=== PATIENT | male | born 1965 | race Caucasian/White ===

== ENCOUNTER → 2020-01-25 12:04 | Outpatient (BNVA) | payer BC, SELFPAY | PROVIDERS: Family Provider Family Medicine; Visit Provider Specialist | DX: M19.042 Primary osteoarthritis, left hand (principal) | CPT/HCPCS: 73140 ==

== ENCOUNTER 2020-01-25 15:26 | Outpatient (CLI) | payer BC, SELFPAY | END 2020-01-25 15:27 | disposition home or self-care (01) | LOC: SPT 15:27 | PROVIDERS: Family Provider Family Medicine; Visit Provider Specialist | DX: Z86.79 Personal history of other diseases of the circulatory system (principal); M18.12 Unilateral primary osteoarthritis of first carpometacarpal joint, left hand | CPT/HCPCS: L3924 ==

== ENCOUNTER 2020-12-27 12:44 | Outpatient (CLI) | payer BC, SELFPAY ==
--- NOTE | 2020-12-27 13:07 | MR_ITS ---
WS: [id number] MRI RIGHT SHOULDER HISTORY: SHOULDER PAIN, BILATERAL COMPARISON: 07/14/2018 TECHNIQUE: Multiplanar sequences of the shoulder joint are submitted. Moderate to severe AC joint hypertrophy. There is increased T2 signal surrounding the AC joint and th rough the AC ligament. Thickening of the capsule anterior and posterior. Hypertrophic bone formation and soft tissue encroaching upon the supraspinatus muscle and tendon. No os acromion. Biceps tendon i s in normal position. Progressive fraying along the surfaces of the supraspinatus tendon. Increased signal within the supra spinatus. There is impingement upon the supraspinatus tendon by the AC joint. No tear is identified. There is a small insertion site tear measuring about 5 mm involving the infraspinatus tendon. Mild te ndinopathy of the subscapularis tendon. No retraction of the tendons. Small amount of fluid in the eddy bacromial and subdeltoid bursa. Mild persistent fraying of the labrum. Similar to the prior study. No definite tears are identified. MR/MR shoulder RT wo con* [id number] IMPRESSION: 1. Moderate to severe AC joint hypertrophy encroaching upon the supraspinatus muscle and tendon. Progressed since 07/14/2020. 2. Small insertion site tear of the infraspinatus muscle. 3. Moderate tendinopathy in the distal supraspinatus tendon with adjacent infl ammatory changes and fluid from the AC joint impingement. Progressive surface f raying along the supraspinatus tendon.
--- NOTE | 2020-12-27 13:07 | MR_ITS ---
WS: [id number] MRI LEFT SHOULDER HISTORY: SHOULDER PAIN, BILATERAL COMPARISON: None available. TECHNIQUE: Multiplanar sequences of the shoulder joint are submitted. Study is compromised by patient movement. There is significant motion artifact. Moderate to severe AC joint hypertrophy. There is bone and soft tissue encroachment upon the supraspi natus tendon and muscle with deformity. Increased fluid in the subacromial and subdeltoid bursa. Biceps tendon is in normal position. No os acromion. Increased fluid and T2 signal along the bursal and articular surfaces of the supraspinatus. Fraying a long the surfaces but no definite tear is identified. Insertion site tears of the infraspinatus muscl e. There are several small insertion site tears identified without retraction. Subscapularis tendon i s intact. Cannot comment on the labrum due to the amount of motion degrading this image quality. MR/MR shoulder LT wo con* [id number] IMPRESSION: 1. Quality of examination is significantly limited by motion. 2. Moderate to severe AC joint hypertrophy with subacromial and subdeltoid bur karine fluid and encroachment and deformity of the supraspinatus tendon and muscle . 3. No supraspinatus tear identified although there is tendinopathy and surface fraying. 4. Several small insertion site tears of the infraspinatus tendon with no retr action.
== END 2020-12-27 12:45 | disposition home or self-care (01) ==
LOC: RADWPI 12:47
PROVIDERS: PCP Family Medicine; Visit Provider Family Medicine
DX: M25.511 Pain in right shoulder (principal); M25.512 Pain in left shoulder; S46.912A Strain of unspecified muscle, fascia and tendon at shoulder and upper arm level, left arm, initial encounter; S46.911A Strain of unspecified muscle, fascia and tendon at shoulder and upper arm level, right arm, initial encounter; X58.XXXA Exposure to other specified factors, initial encounter
CPT/HCPCS: 73221

== ENCOUNTER → 2022-03-12 07:58 | Outpatient (BNVA) | payer BC, SELFPAY | PROVIDERS: PCP Family Medicine; Visit Provider Specialist | DX: R29.90 Unspecified symptoms and signs involving the nervous system (principal); M19.049 Primary osteoarthritis, unspecified hand; R29.898 Other symptoms and signs involving the musculoskeletal system; M19.032 Primary osteoarthritis, left wrist; I16.0 Hypertensive urgency | CPT/HCPCS: 36415; 73100; 73120; 85651; 86140; 86160; 86162; 86200; 86235; 86255; 86376; 86431 ==

== ENCOUNTER → 2022-04-24 09:59 | Outpatient (BNVA) | payer BC, SELFPAY | PROVIDERS: PCP Family Medicine; Visit Provider Specialist | DX: G56.13 Other lesions of median nerve, bilateral upper limbs (principal); M19.049 Primary osteoarthritis, unspecified hand; R29.898 Other symptoms and signs involving the musculoskeletal system; M19.032 Primary osteoarthritis, left wrist; M67.911 Unspecified disorder of synovium and tendon, right shoulder; R29.90 Unspecified symptoms and signs involving the nervous system | CPT/HCPCS: 85651; 86160; 86162; 86235; 86255; 86376; 86431 ==

== ENCOUNTER 2022-06-25 06:38 | Outpatient (CLI) | payer BC, SELFPAY ==
--- NOTE | 2022-06-25 08:45 | MR_ITS ---
WS: [id number] MRI LEFT WRIST with and without CONTRAST. COMPARISON: Radiograph 03/12/2022 Multiplanar, multisequence imaging is performed with and without contrast. Sagittal and axial T1 fat sat sequences post-MultiHance 20 cc IV. Moderate size fluid collection with peripheral enhancement centered around the distal ulna. The compl ex fluid collection with peripheral enhancement extends into the distal radial ulnar joint. There is moderate narrowing of the distal radial ulnar joint with an osteophyte encroaching upon the distal ra dius. Small erosion within the distal ulna. Abnormal signal in the TFCC. Consistent with a complete t ear. There are no normal fibers identified. Fluid extends through the region of the TFCC and surround s the ulnar styloid. Mild narrowing of the distal radiocarpal joint space. Narrowing of the carpal rows. Normal position o f the lunate and capitate. Scapholunate ligament is intact. No fractures are identified. Mild edema and enhancement surrounding the proximal carpal rows is an ex tension from the inflammatory process at the radial ulnar joint. MR/MR wrist LT wo/w con [id number] IMPRESSION: 1. Distal radial ulnar joint effusion with extension to surround the distal ul na. Peripheral enhancement within the effusion suggesting synovitis or acute in flammatory reaction. Favor these changes are probably due to degenerative infla mmatory arthritis with associated TFCC tear. Less likely septic arthritis. 2. Abnormal TFCC. Greater fibrocartilage is torn and not identified as a separ ate structure. The complex fluid collection edema extends to the region of the TFCC. 3. Mild narrowing of the distal radiocarpal joint and the distal radial ulnar joint.
[2022-06-25] MEDS: gadobenate dimeglumine 20 mL vial IV (08:52)
== END 2022-06-25 06:39 | disposition home or self-care (01) ==
LOC: RAD 06:39
PROVIDERS: PCP Family Medicine; Visit Provider Specialist
DX: M19.032 Primary osteoarthritis, left wrist (principal); M25.432 Effusion, left wrist
CPT/HCPCS: 73223

== ENCOUNTER → 2022-07-04 09:54 | Outpatient (BNVA) | payer BC, SELFPAY | PROVIDERS: PCP Family Medicine; Referring Provider Specialist; Visit Provider Internal Medicine Rheumatology | DX: M19.90 Unspecified osteoarthritis, unspecified site (principal); Z79.899 Other long term (current) drug therapy; Z11.59 Encounter for screening for other viral diseases; M19.032 Primary osteoarthritis, left wrist; M06.041 Rheumatoid arthritis without rheumatoid factor, right hand; M06.042 Rheumatoid arthritis without rheumatoid factor, left hand; Z71.85 Encounter for immunization safety counseling | CPT/HCPCS: 36415; 80076; 82306; 82565; 85025; 85651; 86140; 86480; 86704; 86803; 87340 ==

== ENCOUNTER → 2023-04-10 10:17 | Outpatient (BNVA) | payer BC, SELFPAY | PROVIDERS: PCP Family Medicine; Visit Provider Internal Medicine Rheumatology | DX: M06.041 Rheumatoid arthritis without rheumatoid factor, right hand (principal); M06.042 Rheumatoid arthritis without rheumatoid factor, left hand; Z79.899 Other long term (current) drug therapy; M19.032 Primary osteoarthritis, left wrist; Z71.85 Encounter for immunization safety counseling | CPT/HCPCS: 36415; 80076; 82565; 85025; 86140 ==

== ENCOUNTER → 2023-07-10 11:21 | Outpatient (BNVA) | payer BC, SELFPAY | PROVIDERS: PCP Family Medicine; Visit Provider Internal Medicine Rheumatology | DX: M06.041 Rheumatoid arthritis without rheumatoid factor, right hand (principal); M06.042 Rheumatoid arthritis without rheumatoid factor, left hand; Z79.899 Other long term (current) drug therapy; M19.032 Primary osteoarthritis, left wrist; Z71.85 Encounter for immunization safety counseling | CPT/HCPCS: 36415; 80076; 82565; 85025; 86140 ==

== ENCOUNTER 2023-10-22 08:50 | Outpatient (CLI) | payer BC, SELFPAY ==
--- NOTE | 2023-10-22 08:58 | XR_ITS ---
WS: [id number] Right knee, 3 views, 10/22/2023 Clinical Data: M25.569 - Pain in unspecified knee Comparison: None. Findings: No fractures or dislocations are seen. There is minimal medial joint compartment narrowing. The griffin la has an anterior superior spur. The soft tissues are unremarkable. Impression: Minimal narrowing of the medial joint compartment with an anterior superior right patellar spur. Kellgren-Lorenzo Classification: grade 1 (doubtful): doubtful joint space narrowing and possible ost eophytic lipping
[2023-10-22 09:03] LABS: Basophils % 0.3 %; Eosinophils # 0.3 10^3/uL (0.0-0.8); Eosinophils % 4.9 %; Hematocrit 46.2 % (37-53); Lymphocytes # 1.7 10^3/uL (0.8-4.8); Lymphocytes % 27.5 %; Mean Corpuscular HGB Conc 34.4 g/dL (30-55); Mean Corpuscular Hemoglobin 31.4 pg (27-33); Mean Corpuscular Volume 91.1 fl (82-101); Mean Platelet Volume 10.8 fL (7.4-10.4); Monocytes # 0.6 10^3/uL (0.2-0.9); Monocytes % 9.4 %; Neutrophils # 3.55 10^3/uL (1.8-7.7); Neutrophils % 57.7 %; Nucleated Red Blood Cells % 0 %; Platelet Count 180 10^3/cmm (157-399); Red Blood Count 5.07 10^6/uL (3.85-5.65); Red Cell Distribution Width 14.5 % (12.1-15.1); White Blood Count 6.15 10^3/uL (3.29-11.43)
[2023-10-22 09:22] LABS: Alanine Aminotransferase 22 U/L (0-41); Albumin Level 4.2 g/dL (3.5-5.2); Alkaline Phosphatase 88 U/L (40-130); Aspartate Amino Transferase 17 U/L (0-40); Globulin 3.2 g/dL (1.3-4.6); Glomerular Filtration Rate 86.1 mL/min (90-130); Total Bilirubin 0.4 mg/dL (0.15-1.2); Total Protein 7.4 g/dL (6.6-8.7)
== END 2023-10-22 08:51 | disposition home or self-care (01) ==
LOC: LAB 08:52
PROVIDERS: PCP Family Medicine; Visit Provider Internal Medicine Rheumatology
DX: M25.561 Pain in right knee (principal); M06.041 Rheumatoid arthritis without rheumatoid factor, right hand; M06.042 Rheumatoid arthritis without rheumatoid factor, left hand; Z79.899 Other long term (current) drug therapy
CPT/HCPCS: 36415; 73562; 80076; 82565; 85025; 86140

== ENCOUNTER → 2024-04-28 14:37 | Outpatient (BNVA) | payer BC, SELFPAY | PROVIDERS: PCP Family Medicine; Visit Provider Internal Medicine Rheumatology | DX: M06.041 Rheumatoid arthritis without rheumatoid factor, right hand (principal); M06.042 Rheumatoid arthritis without rheumatoid factor, left hand; Z79.899 Other long term (current) drug therapy; M19.032 Primary osteoarthritis, left wrist; Z71.85 Encounter for immunization safety counseling | CPT/HCPCS: 36415; 80076; 82565; 85025; 85651; 86140 ==

== ENCOUNTER 2024-07-15 11:46 | Outpatient (CLI) | payer BC, SELFPAY ==
--- NOTE | 2024-07-15 11:52 | XRR_ITS ---
PROCEDURE INFORMATION: Exam: XR Chest Exam date and time: 07/15/2024 12:10 PM Age: 59 years old Clinical indication: Shortness of breath; Prior surgery; Surgery date: 6+ months; Surgery type: HX of stents, inspire breathing device implanted in chest x2 years prior; Patient HX: 1 month prior sick, 1 1/2 week ago chest started feeling tight and SOB, TECHNIQUE: Imaging protocol: Radiologic exam of the chest. Views: 2 views. COMPARISON: MR shoulder LT wo con* [id number] 12/27/2020 1:48 PM FINDINGS: Tubes, catheters and devices: Pulse generator for cervical spine stimulator projects over the right perihilar region. Lungs: No focal consolidation. Mild interstitial and vascular prominence. Pleural spaces: No pneumothorax or pleural effusion. Heart/Mediastinum: Heart is enlarged. Mediastinal contours unremarkable.. Bones/joints: No acute osseous or soft tissue abnormality. XR/XR chest 2V* [id number] IMPRESSION: 1. Mild pulmonary edema. Possible CHF. 2. Cardiomegaly.
== END 2024-07-15 11:47 | disposition home or self-care (01) ==
PROVIDERS: PCP Family Medicine; Visit Provider Nurse Practitioner Family
DX: J81.1 Chronic pulmonary edema (principal); I51.7 Cardiomegaly; R06.02 Shortness of breath; J20.8 Acute bronchitis due to other specified organisms
CPT/HCPCS: 71046

== ENCOUNTER → 2025-10-13 15:26 | Outpatient (BNVA) | payer BC, SELFPAY | PROVIDERS: PCP Family Medicine; Visit Provider Internal Medicine Rheumatology | DX: Z79.899 Other long term (current) drug therapy (principal); M06.041 Rheumatoid arthritis without rheumatoid factor, right hand; M06.042 Rheumatoid arthritis without rheumatoid factor, left hand | CPT/HCPCS: 36415; 80076; 82565; 85025; 85651; 86140; 86480 ==